=== PATIENT | male | born 1970 | race Hispanic/Latino ===

== ENCOUNTER 2023-05-27 02:37 | Day surgery (SDC) | payer OTHER, SELFPAY ==
[2023-05-14 14:35] VITALS: BMI 21.2
[2023-05-27 07:34] VITALS: BP 127/79; PULSE 65; RESP 18; TEMP 36.5; O2SAT 98; BMI 20.3
[2023-05-27] MEDS: LACTATED RINGERS 1,000 ML 150 ML IV CONT (08:00)
--- NOTE | 2023-05-27 08:22 | P.HP_ITS ---
History of Present Illness History of Present Illness Consent: Risks, benefits, and alternatives have been discussed and questions answered. Patient agrees to proceed with procedure. Chief complaint: neoplasm screening Narrative: Franklin Artis is a 53 year old male Presents for screening colonoscopy. Patient's current weight appetite and bowel movements are normal. Patient denies abdominal pain. He has had no bleeding. Family history noncontributory. Review of Systems Review of Systems: Review of systems noncontributory. [facility] Social History Social History (System 03/02/23 @ 15:21 by Caterina Brown) Smoking status: Never smoker Alcohol intake: never Substance use: never Substance use type: does not use Living arrangements: with family Spiritual care concerns: No Meds Home Medications and Allergies Home Medications Medication Instructions Recorded Confirmed Type fluorometholone 0.1 % eye 1 drp RIGHT EYE TID 05/14/23 05/14/23 History drops,suspension venlafaxine 75 mg capsule,extended 75 mg PO HS 05/14/23 05/14/23 History release 24 hr Allergies Allergy/AdvReac Type Severity Reaction Status Date / Time No Known Allergies Allergy Verified 05/14/23 14:36 Vital Signs Vital Signs - 24 hr 05/27/23 07:34 Temperature 97.7 F Pulse Rate 65 Respiratory Rate 18 Blood Pressure 127/79 Pulse Oximetry 98 Oxygen Delivery Room Air Exam Narrative: Physical exam reveals patient to be alert. Vital signs stable. HEENT exam is unremarkable. Patient is anicteric. Lungs are clear to auscultation and percussion. Heart is without murmur or extra sounds. Abdomen bowel sounds are present soft nontender with no organomegaly. Digital external rectal exam is normal. Assessment and Plan Assessment and plan (1) Encounter for screening colonoscopy: Code(s): Z12.11 - Encounter for screening for malignant neoplasm of colon Status: Acute Assessment and Plan: Patient presents for screening colonoscopy. He appears to be at average risk for colon polyps. Further recommendations may be given after endoscopy.
--- NOTE | 2023-05-27 08:54 | WPDANESEPPF ---
Anes - Initial Pre Proc Eval Procedure: Operation Date: 05/27/23 09:00 Proposed Procedures p Screening Colonoscopy - Carlos Romo MD Date/Time: 05/27/23 08:54 Surgeon: Carlos Romo MD Pre Op Diagnosis: neoplasm screening Patient Data Age: 53 Gender: M Height: 1.7 m Weight: 59 kg Last Vital Signs Temp 97.7 F 05/27/23 07:34 Pulse 65 05/27/23 07:34 Resp 18 05/27/23 07:34 BP 127/79 05/27/23 07:34 Pulse Ox 98 05/27/23 07:34 O2 Del Method Room Air 05/27/23 07:34 Allergies Allergy/AdvReac Type Severity Reaction Status Date / Time No Known Allergies Allergy Verified 05/14/23 14:36 Home Medications Medication Instructions Recorded Confirmed Type fluorometholone 0.1 % eye 1 drp RIGHT EYE TID 05/14/23 05/14/23 History drops,suspension venlafaxine 75 mg capsule,extended 75 mg PO HS 05/14/23 05/14/23 History release 24 hr Patient hx anesthesia problems: none Family hx anesthesia problems: none Results Review: All pre-operative results and documents have been reviewed as part of the pre-operative evaluation. [facility] Social History Social History (System 03/02/23 @ 15:21 by Caterina Brown) Smoking status: Never smoker Alcohol intake: never Substance use: never Substance use type: does not use Living arrangements: with family Spiritual care concerns: No Anes - Eval Final PreProcedure Day of Procedure 05/27/23 08:54 Patient weight: normal Heart: regular rate and rhythm Lungs: clear to auscultation Airway: Mallampati scale class II Neurological: alert and oriented Last oral intake: >/= 8 hours ASA classification: II Emergent: no Anesthetic plan: proceed Anesthesia type and monitoring: general GIVS and standard monitoring Results Review: All pre-operative results and documents have been reviewed as part of the pre-operative evaluation. Informed Consent: The patient's anesthetic plan and its attendant risks and benefits were discussed with the patient/family/POA. Questions were solicited and answers provided to the satisfaction of the patient/family/POA.
[2023-05-27 09:29] VITALS: BP 94/62; PULSE 71; RESP 17; O2SAT 98
[2023-05-27 09:39] VITALS: BP 106/73; PULSE 63; RESP 15; O2SAT 99
[2023-05-27 09:49] VITALS: BP 102/68; PULSE 63; RESP 20; O2SAT 100
--- NOTE | 2023-05-27 09:52 | SUR.PHASEII ---
Patient speaks [place] and [place]. D/C instructions provided in both.
== END 2023-05-27 09:58 | disposition home or self-care (01) ==
PROVIDERS: PCP Physician Assistant; Visit Provider Internal Medicine Gastroenterology
PROC: 0DJD8ZZ Inspection of Lower Intestinal Tract, Via Natural or Artificial Opening Endoscopic (ICD-10-PCS; CPT 45378; principal; 2023-05-27 09:00)
DX: Z12.11 Encounter for screening for malignant neoplasm of colon (principal); K64.8 Other hemorrhoids
CPT/HCPCS: 45378; J2704; J7120

== ENCOUNTER 2023-12-08 15:13 | Emergency (ER) | payer OTHER, SELFPAY ==
--- NOTE | ~2023-12-08 | XR_ITS ---
EXAMINATION: XR knee LT 3V DATE: 12/08/2023 16:06 INDICATION: Left knee redness and swelling. TECHNIQUE: 3 views of left knee were obtained. COMPARISON: None. FINDINGS: Alignment is normal. No fracture. There is mild osteoarthritis of patellofemoral compartmen t. No knee joint effusion. There is prepatellar and superficial infrapatellar soft tissue swelling, c onsistent with bursitis. IMPRESSION: 1. Mild left knee osteoarthritis. 2. Prepatellar and superficial infrapatellar bursitis. Reviewed, dictated and finalized at location A.
[2023-12-08 15:16] VITALS: BP 112/96; PULSE 99; RESP 16; TEMP 36.6; O2SAT 100
--- NOTE | 2023-12-08 15:18 | ED.LOWEXIN ---
HPI - Extremity Injury (Lower) General Chief Complaint: Extremity Injury, Lower Stated Complaint: knee pain Time Seen by Provider: 12/08/23 15:16 History of Present Illness HPI Narrative: 53-year-old male presents emergency room for evaluation of left knee pain For 4 days. Patient states pain began when he was changing the oil in a car. Denies any known injury. States the knee is well red, swollen, and warm to the touch. No known history of prior knee injuries. Denies fever. States pain is worse when flexing the knee. Denies any joint laxity. Related Data Home Medications Medication Instructions Recorded Confirmed fluorometholone 0.1 % eye 1 drp RIGHT EYE TID 05/14/23 05/14/23 drops,suspension venlafaxine 75 mg capsule,extended 75 mg PO HS 05/14/23 05/14/23 release 24 hr Allergies Allergy/AdvReac Type Severity Reaction Status Date / Time naproxen Allergy Swelling Verified 12/08/23 15:22 of Lip/Tongue/Throat NSAIDS (Non-Steroidal Allergy Swelling Verified 12/08/23 15:22 Anti-Inflamma of Lip/Tongue/Throat Review of Systems Review of Systems: Review of systems unremarkable except for noted in HPI PMFSH Social History Social History Smoking status: Never smoker Alcohol intake: never Substance use: never Substance use type: does not use Living arrangements: with family Spiritual care concerns: No Exam Narrative: GENERAL: Well-appearing, well-nourished, no physical limitations, and in no acute distress. HEAD: Normocephalic, atraumatic. EYES: Conjunctivae normal, PERRLA and EOMI. CHEST: Clear to auscultation. No respiratory distress. No wheezes rales or rhonchi. No tenderness. HEART: Regular rate and rhythm. No murmur heard. Normal peripheral pulses. EXTREMITIES: Left knee: prepatatellar erythema, STS, warmth. No obvious skin disruptions. No joint laxity. FROM. SKIN: Warm, dry, no rash. No noted wounds NEURO: No focal deficits. Alert and oriented x3. MAEW. CN's II-XI intact bilaterally, normal gait PSYCH: Cooperative. Normal mood and affect. Course Vital Signs Vital signs: Vital Signs Temperature 36.6 C 12/08/23 15:16 Pulse Rate 99 12/08/23 15:16 Respiratory Rate 16 12/08/23 15:16 Blood Pressure 112/96 H 12/08/23 15:16 Pulse Oximetry 100 12/08/23 15:16 Oxygen Delivery Room Air 12/08/23 15:16 Temperature 36.6 C 12/08/23 15:16 Pulse Rate 99 12/08/23 15:16 Respiratory Rate 16 12/08/23 15:16 Blood Pressure 112/96 H 12/08/23 15:16 Pulse Oximetry 100 12/08/23 15:16 Oxygen Delivery Room Air 12/08/23 15:16 MDM - Extremity Injury (Lower) Lab Data 12/08/23 15:30 12/08/23 15:30 Labs: Lab Results 12/08/23 Range/Units 15:30 WBC 7.5 (4.5-10.0) K/mm3 RBC 4.13 L (4.6-6.20) M/mm3 Hgb 12.8 L (14.0-18.0) g/dL Hct 37.4 L (42.0-52.0) % MCV 90.6 (80-100) fl MCH 31.0 (26-34) pg MCHC 34.2 (32-36) g/dl RDW 12.8 (11.5-14.5) % Plt Count 344 (150-375) k/mm3 MPV 8.8 (7.4-10.4) fl Immature Gran % (Auto) 0.3 (0-0.5) % Neut % (Auto) 62.7 (45.5-73.1) % Lymph % (Auto) 28.4 (18.3-44.2) % [facility] % (Auto) 7.2 (2.6-8.5) % Eos % (Auto) 1.1 (0-4.4) % Baso % (Auto) 0.3 (0.2-1.2) % Lymph # (Auto) 2.13 (0.9-3.2) K/mm3 [facility] # (Auto) 0.5 (0.1-0.6) K/mm3 Eos # (Auto) 0.1 (0-0.3) K/mm3 Baso # (Auto) 0.0 (0.0-0.1) K/mm3 Abs Immat Gran (auto) 0.02 (0.00-0.031) K/mm3 Absolute Neuts (auto) 4.7 (1.3-6.7) K/mm3 Absolute Nucleated RBC 0.000 (0.0-0.012) K/mm3 Nucleated RBC % 0.0 (0.0-0.2) % Sodium 135 L (137-145) mmol/L Potassium 3.9 (3.4-5.0) mmol/L Chloride 105 (98-107) mmol/L Carbon Dioxide 24 (22-30) mmol/L Anion Gap 6 (4-12) mmol/L BUN 19 (9-20) mg/dL Creatinine 0.90 (0.7-1.3) mg/dL Estim Creat Clear Calc 79 ml/min Estimated GFR > 60 (59 - ) Glucose 1
[2023-12-08 15:36] LABS: Basophils Percent Auto 0.3 % (0.2-1.2); Eosinophils Absolute Auto 0.1 K/mm3 (0-0.3); Eosinophils Percent Auto 1.1 % (0-4.4); Hematocrit 37.4 % (42.0-52.0); Hemoglobin 12.8 g/dL (14.0-18.0); Immature Granulocyte Absolute 0.02 K/mm3 (0.00-0.031); Immature Granulocyte Percent A 0.3 % (0-0.5); Lymphocytes Absolute Auto 2.13 K/mm3 (0.9-3.2); Lymphocytes Percent Auto 28.4 % (18.3-44.2); Mean Corpuscular HGB Conc 34.2 g/dl (32-36); Mean Corpuscular Volume 90.6 fl (80-100); Mean Platelet Volume 8.8 fl (7.4-10.4); Monocytes Absolute Auto 0.5 K/mm3 (0.1-0.6); Monocytes Percent Auto 7.2 % (2.6-8.5); Neutrophils Absolute Auto 4.7 K/mm3 (1.3-6.7); Neutrophils Percent Auto 62.7 % (45.5-73.1); Platelet Count Result 344 k/mm3 (150-375); Red Blood Count 4.13 M/mm3 (4.6-6.20); Red Cell Distribution Width 12.8 % (11.5-14.5); White Blood Count 7.5 K/mm3 (4.5-10.0)
[2023-12-08 15:53] LABS: Alanine Aminotransferase 70 U/L (6-50); Albumin Level 4.3 g/dL (3.5-5.1); Alkaline Phosphatase 127 U/L (38-126); Anion Gap 6 mmol/L (4-12); Aspartate Amino Transferase 48 U/L (17-59); Bilirubin,Total 0.3 mg/dL (0.2-1.3); Blood Urea Nitrogen 19 mg/dL (9-20); Calcium 9.2 mg/dL (8.4-10.2); Carbon Dioxide 24 mmol/L (22-30); Chloride 105 mmol/L (98-107); Estimated CRCL calculation 79 ml/min; Estimated Glomerular Filt Rate > 60; Glucose 104 mg/dL (65-110); Potassium 3.9 mmol/L (3.4-5.0); Sodium 135 mmol/L (137-145)
== END 2023-12-08 16:38 | disposition home or self-care (01) ==
LOC: ANHED 16:25
PROVIDERS: Emergency Provider Nurse Practitioner Family; PCP Physician Assistant
DX: M70.42 Prepatellar bursitis, left knee (principal)
CPT/HCPCS: 36415; 73562; 80053; 85025; 99283